=== PATIENT | female | born 1985 | race Caucasian/White ===

== ENCOUNTER → 2017-07-06 | Outpatient (CLI) | payer OTHER ==
[~2017-07-06] MED LIST: ACET50TA PO; IBUP80TA PO; LIDOCAINE 1% MDV 20ML VIAL As Ordered ONE; PRE-TAB3 PO; RANITAB PO
--- NOTE | 2017-07-06 11:02 | REP ---
LEFT BREAST MAMMOGRAM: Postbiopsy mammogram left breast performed. Patient underwent an ultrasound guided biopsy of a nodule in the upper aspect of the left breast. A metallic clip is seen at the site of the spiculated nodule previously identified on the mammogram of 06/28/2017. Signed by Giovanni Burnett MD 07/06/2017 01:29 P
--- NOTE | 2017-07-06 17:32 | REP ---
ULTRASOUND GUIDED LEFT BREAST BIOPSY: The procedure was performed under the direct supervision of Dr. Burnett. The patient has a history of a hypoechoic irregularly shaped shadowing mass measuring 1.5 x 1.9 cm at the 12 o'clock position of the left breast seen in a previous ultrasound dated 06/28/2017. The risks and benefits of the procedure were explained to the patient and informed consent was obtained. The left breast mass was localized ultrasound guidance. The skin was prepped and draped in a sterile fashion 1% lidocaine was used as a local anesthetic. Using ultrasound guidance a 13-gauge suction assisted mammotome needle was inserted and 6 core biopsy samples were obtained. A marker clip was placed at the biopsy site. The patient tolerated the procedure well and there were no immediate complications. After the appropriate amount of monitored convalescence the patient was discharged from the department. Reviewed by SAMI Valderrama 07/07/2017 04:30 PEdited and Signed by Giovanni Burnett MD 07/08/2017 04:23 P
== END ==
LOC: M RADPRO 09:03
PROVIDERS: ATTEND Surgery
DX: C50.919 Malignant neoplasm of unspecified site of unspecified female breast (principal); Z79.899 Other long term (current) drug therapy
CPT/HCPCS: 19083; 88305; G0206

== ENCOUNTER → 2017-09-16 | Outpatient (REF) | payer OTHER ==
[2017-09-18 14:12] LABS: HPV HYBRID CAPTURE II Negative (Negative)
== END ==
LOC: M LAB REF 15:17
DX: Z12.4 Encounter for screening for malignant neoplasm of cervix (principal)
CPT/HCPCS: G0123

== ENCOUNTER → 2017-09-21 | Outpatient (CLI) | payer OTHER | LOC: M ONCR 10:27 | DX: C50.912 Malignant neoplasm of unspecified site of left female breast (principal) | CPT/HCPCS: G0463 ==

== ENCOUNTER 2017-09-23 11:05 | Outpatient (RCR) | payer OTHER | END 2017-10-20 | LOC: M ONCR 11:05 | DX: C50.812 Malignant neoplasm of overlapping sites of left female breast (principal) | CPT/HCPCS: 77300 ==

== ENCOUNTER → 2017-09-23 | Outpatient (CLI) | payer OTHER | LOC: M RAD 10:32 | DX: C50.912 Malignant neoplasm of unspecified site of left female breast (principal) ==

== ENCOUNTER 2017-10-21 11:18 | Outpatient (RCR) | payer OTHER | END 2017-11-20 | LOC: M ONCR 11:18 | DX: C50.812 Malignant neoplasm of overlapping sites of left female breast (principal) | CPT/HCPCS: 77300 ==

== ENCOUNTER → 2017-12-29 | Outpatient (CLI) | payer OTHER | LOC: M ONCR 11:25 | DX: C50.812 Malignant neoplasm of overlapping sites of left female breast (principal) | CPT/HCPCS: G0463 ==

== ENCOUNTER → 2018-07-13 | Outpatient (CLI) | payer OTHER | LOC: M ONCR 10:54 | DX: C50.912 Malignant neoplasm of unspecified site of left female breast (principal) | CPT/HCPCS: G0463 ==

== ENCOUNTER → 2018-11-14 | Outpatient (REF) | payer OTHER ==
[~2018-11-14] MED LIST changes: -ACET50TA PO; -LIDOCAINE 1% MDV 20ML VIAL As Ordered ONE; +MAPA500T2 PO; +SILV40CR EXT
[2018-11-16 14:12] LABS: HPV HYBRID CAPTURE II Negative (Negative)
== END ==
LOC: M LAB REF 19:23
PROVIDERS: ATTEND Advanced Practice Midwife
DX: Z12.4 Encounter for screening for malignant neoplasm of cervix (principal); Z11.51 Encounter for screening for human papillomavirus (HPV)
CPT/HCPCS: 87624; G0123

== ENCOUNTER → 2019-10-26 | Outpatient (CLI) | payer OTHER ==
--- NOTE | 2019-10-26 08:32 | REPMRS ---
Patient History The patient states she had a clinical breast exam in 05/2019. Patient has history of cancer in the left breast at age 32 and had previous chest radiation therapy at age 32. Family history of ovarian cancer at age 50 or over in maternal grandmother, prostate cancer at age 50 or over in maternal grandfather. Malignant US guided breast biopsy of the left breast, July 06, 2017. Taking tamoxifen for 2 years. Digital Woman Screen Mammo: October 26, 2019 - Exam #: [id number] Bilateral CC and MLO view(s) were taken. Technologist: Alicia Hunter, Technologist Prior study comparison: February 27, 2019, bilateral breast MRI, performed at [facility]. August 19, 2018, bilateral digital mammo screening bilat, performed at [facility]. July 06, 2017, left breast digital mammo diagnostic unilateral, performed at [facility]. June 29, 2017, digital mammo diagnostic bilateral, performed at [facility]. FINDINGS: There are scattered fibroglandular densities. There are stable post-treatment changes in the left breast at approximately the 12 o'clock position. There is a moderate amount of residual fibroglandular tissue which is fairly symmetric. There is no interval development of dominant mass, architectural distortion, or grouped microcalcification typical of malignancy. There has been no change in the appearance of the mammogram from the prior studies. 3-D tomosynthesis shows no additional findings. Assessment: BI-RADS/ACR category 2 mammogram. Benign Findings. Recommendation Routine screening mammogram of both breasts in 1 year (for women over age 40). This mammogram was interpreted with the aid of an FDA-approved computer-aided dectection system. Electronically Signed By: Wei Aponte MD 10/26/19 0861
== END ==
LOC: M WHC 06:33
PROVIDERS: ATTEND Nurse Practitioner
DX: Z12.31 Encounter for screening mammogram for malignant neoplasm of breast (principal); Z85.3 Personal history of malignant neoplasm of breast; Z80.41 Family history of malignant neoplasm of ovary; Z80.42 Family history of malignant neoplasm of prostate; Z92.3 Personal history of irradiation

== ENCOUNTER → 2020-05-28 | Outpatient (CLI) | payer OTHER ==
[2020-05-28 21:03] LABS: HEPATITIS B SURFACE ANTIBODY NEGATIVE (POSITIVE); HEPATITIS B SURFACE ANTIGEN NEGATIVE (NEGATIVE); HEPATITIS C VIRUS ABY INDEX 0.1 INDEX (<0.8); HIV 1&2 SCREEN CENTAUR NEGATIVE (NEGATIVE)
[2020-05-31 16:08] LABS: HSV TYPE II IgG SPECIFIC <0.91 index (0.00-0.90)
== END ==
LOC: M WUC 16:07
PROVIDERS: ATTEND Family Medicine
DX: Z72.51 High risk heterosexual behavior (principal)

== ENCOUNTER → 2020-09-16 | Outpatient (REF) | payer OTHER | LOC: M SFHCWAGY 13:33 | PROVIDERS: ATTEND Advanced Practice Midwife | DX: Z12.4 Encounter for screening for malignant neoplasm of cervix (principal) ==

== ENCOUNTER → 2020-10-23 | Outpatient (CLI) | payer OTHER ==
--- NOTE | 2020-10-23 09:45 | PFTRPT ---
Height: 63.00 Inches Weight: 188.00 Lbs BSA: 1.88 Diagnosis: R06.02 DATE: 10/23/2020 ORDERING PHYSICIAN: Dr. Shoaib Segundo Pre and post bronchodilator studies have excellent technical quality. Forced vital capacity is normal. FEV1 is in proportion. Obstructive index is therefore normal. Expiratory limit of the flow-volume loop is normal. No significant bronchodilator response is identified. Total lung capacity is normal. Residual volume is in proportion. Diffusing capacity is normal. No hemoglobin available for correction. Airway resistance and conductance are normal. IMPRESSION: Normal study. MTDD
--- NOTE | 2020-10-23 10:40 | REP ---
INDICATION: SHORTNESS OF BREATH- PFT TEST FIRST COMPARISON: None. TECHNIQUE: PA and lateral. FINDINGS: The mediastinum and cardiac silhouette are normal. The lung oconnor are clear and without acute consolidation, effusion, or pneumothorax. The skeletal structures are intact and normal. IMPRESSION: No acute cardiopulmonary process. <Electronically signed by Dieter Thompson > 10/23/20 1037
== END ==
LOC: M CARPUL 09:14
PROVIDERS: ATTEND Family Medicine
DX: R06.02 Shortness of breath (principal)

== ENCOUNTER → 2020-11-25 | Outpatient (CLI) | payer OTHER ==
--- NOTE | 2020-11-25 15:08 | REPMRS ---
Patient History The patient states she had a clinical breast exam in August 2020. Patient has history of cancer in the left breast at age 32 and had previous chest radiation therapy at age 32. Family history of ovarian cancer at age 50 or over in maternal grandmother, prostate cancer at age 50 or over in maternal grandfather. Malignant US guided breast biopsy of the left breast, July 06, 2017. Took tamoxifen for 2 years. 3D TOMOSYNTHESIS WAS PERFORMED. Volpara breast density c. Digital Woman Screen Mammo: November 25, 2020 - Exam #: [id number] Bilateral CC and MLO view(s) were taken. Technologist: Val Clemens, RT Prior study comparison: October 26, 2019, bilateral digital woman screen mammo performed at [facility]. August 19, 2018, bilateral digital mammo screening bilat, performed at [facility]. FINDINGS: The breast tissue is heterogeneously dense. This may lower the sensitivity of mammography. There is no evidence of cancer on this mammogram. There are stable postsurgical changes in the left breast, few metallic clips are seen superiorly. Coarse benign type calcifications are present. There is no new mass or clustered microcalcifications. No significant changes when compared with prior studies. Assessment: BI-RADS/ACR category 2 mammogram. Benign Findings. Recommendation Routine screening mammogram of both breasts in 1 year (for women over age 40). This mammogram was interpreted with the aid of an FDA-approved computer-aided dectection system. Electronically Signed By: Giovanni Burnett MD 11/25/20 [id number]
== END ==
LOC: M WHC 13:50
PROVIDERS: ATTEND Nurse Practitioner
DX: Z12.31 Encounter for screening mammogram for malignant neoplasm of breast (principal); Z85.3 Personal history of malignant neoplasm of breast; Z92.3 Personal history of irradiation; Z80.41 Family history of malignant neoplasm of ovary; Z92.29 Personal history of other drug therapy

== ENCOUNTER 2021-01-29 09:13 | Inpatient (IN) | payer OTHER ==
[~2021-01-29] VITALS: Ht 160 cm; Wt 86.3 kg
[2021-01-29 10:09] LABS: HEMOGLOBIN 14.7 g/dl (12.0-15.5); MEAN CORPUSCULAR HEMOGLOBIN 29.2 pg (27.0-33.0); MEAN CORPUSCULAR HGB CONC 33.4 g/dl (32.0-36.5); MEAN CORPUSCULAR VOLUME 87.5 fl (80.0-96.0); PLATELET COUNT, AUTOMATED 273 10^3/uL (150-450); RED BLOOD COUNT 5.03 10^6/uL (4.00-5.40); WHITE BLOOD COUNT 7.2 10^3/uL (4.0-10.0)
[2021-01-29 10:43] LABS: AMPHETAMINES LEVEL URINE NEGATIVE (NEGATIVE); BARBITURATES URINE NEGATIVE (NEGATIVE); BENZODIAZEPINES URINE NEGATIVE (NEGATIVE); CANNABINOIDS URINE NEGATIVE (NEGATIVE); COCAINE METABOLITE URINE NEGATIVE (NEGATIVE); METHADONE URINE NEGATIVE (NEGATIVE); OPIATES URINE NEGATIVE (NEGATIVE); PHENCYCLIDINE URINE NEGATIVE (NEGATIVE)
[2021-01-29 11:19] LABS: ACETAMINOPHEN LEVEL < 2.0 UG/ML (10.0-30.0); ALBUMIN 3.8 GM/DL (3.2-5.2); ALT/SGPT 25 U/L (12-78); BILIRUBIN,DIRECT 0.1 MG/DL (0.0-0.2); BILIRUBIN,TOTAL 0.4 MG/DL (0.2-1.0); BLOOD UREA NITROGEN 12 MG/DL (7-18); CALCIUM LEVEL 9.3 MG/DL (8.5-10.1); CARBON DIOXIDE LEVEL 22 MEQ/L (21-32); CHLORIDE LEVEL 110 MEQ/L (98-107); CREATININE FOR GFR 0.91 MG/DL (0.55-1.30); ETHYL ALCOHOL (ETHANOL) 0.005 % (0.000-0.010); GLOMERULAR FILTRATION RATE > 60.0 (>60); GLUCOSE, FASTING 139 MG/DL (70-100); SALICYLATE LEVEL < 1.7 MG/DL (5.0-30.0); SODIUM LEVEL 143 MEQ/L (136-145); TOTAL PROTEIN 7.8 GM/DL (6.4-8.2)
[2021-01-29] MEDS ORDERED: VENL75CA47 PO (11:24)
[2021-01-29] MEDS ORDERED: CETI10TA PO (15:08)
[2021-01-29] MEDS ORDERED: FLON27.5 NARES (15:08)
[2021-01-29 16:53] LABS: RSV AMPLIFICATION NEGATIVE (NEGATIVE)
[2021-01-29] MEDS ORDERED: traZODone 50 MG TAB PO PRN (17:30)
[2021-01-29] MEDS ORDERED: MAALOX 30 ML SUSP *UDC PO PRN (17:30)
[2021-01-29] MEDS ORDERED: MOM 30ML SUSPENSION UDC PO PRN (17:30)
[2021-01-29] MEDS ORDERED: NICOTINE 21MG/24HR 1 EA TRANSDERMAL TD PRN (17:30)
[2021-01-29] MEDS ORDERED: IBUPROFEN 400MG TAB PO PRN (17:30)
[2021-01-29 22:23] VITALS: BP 144/98
[2021-01-30 07:17] VITALS: BP 145/77
[2021-01-30] MEDS ORDERED: VENLAFAXINE **XR** 75MG CAPSULE PO SCH (09:00)
[2021-01-30] MEDS ORDERED: hydrOXYzine 50 MG TAB PO PRN (12:00)
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
--- NOTE | 2021-01-30 15:15 | HPEPDOC ---
[facility] Medical History & Physical Date of Admission Jan 29, 2021 Date of Service: Jan 30, 2021 History and Physical CHIEF COMPLAINT: Suicidal ideation HISTORY OF PRESENT ILLNESS: 35-year-old female admitted to inpatient mental health for suicidal ideation, stating that she felt like "driving her car off the road". . She stated she attempted to seek outpatient assistance but was unable to follow through with her appointments. , She noted trivial activities of daily living were triggering her depression. Agent called the police and was brought to the emergency room for mental health evaluation. On evaluation she denies any medical complaints. She denies chest pain, shortness of breath, abdominal pain, nausea, vomiting, diarrhea, headaches. PAST MEDICAL HISTORY: #breast cancer #asthma Family History: Reviewed, non-contributory Social History: Denies nicotine abuse, admits to marijuana use 1-2 x week, denies alcohol abuse or other illicit drug use. ALLERGIES: Please see below. REVIEW OF SYSTEMS: Negative except as per HPI HOME MEDICATIONS: Please see below. PHYSICAL EXAMINATION: VITAL SIGNS: See below General: NAD, sitting comfortably in chair HEENT: NC/AT, EOMI Lungs: CTA B/L Heart: +S1S2, RRR, -M/R/G Abd: soft, obese, +BS, NT Ext: no edema Neuro: AAOx3, no gross focal deficits LABORATORY DATA: See below. MICROBIOLOGY: Please see below. A/P: 35-year-old female admitted to inpatient mental health unit for suicidal ideation. #Suicidal ideation. Follow as per primary team - psychiatry #breast cancer - continue with outpatient follow up #asthma - stable Thank you for this consultation. Please reconsult as needed. Vital Signs Vital Signs Date Time Temp Pulse Resp B/P (MAP) Pulse Ox O2 Delivery O2 Flow Rate FiO2 01/30/21 07:17 98.1 108 16 145/77 (99) 99 Room Air Laboratory Data Labs 24H Laboratory Tests 2 01/29/21 16:08: Coronavirus (COVID-19)(PCR) NEGATIVE, Influenza Type A (RT-PCR) NEGATIVE, Influenza Type B (RT-PCR) NEGATIVE, Respiratory Syncytial Virus (PCR) NEGATIVE Home Medications Scheduled Cetirizine HCl (Cetirizine HCl) 10 Mg Tablet, 10 MG PO DAILY Fluticasone Furoate (Flonase Sensimist) 5.9 Ml [place].susp, 1 SPRAY NARES BID Venlafaxine HCl (Venlafaxine HCl ER) 75 Mg Cap.er.24h, 75 MG PO DAILY Allergies Coded Allergies: ENVIROMENTAL (Verified Allergy, Unknown, 11/28/14) A-FIB/CHADSVASC A-FIB History Current/History of A-Fib/PAF?: No SHAHBAZ BRO MD Jan 30, 2021 13:17
[2021-01-30 16:16] VITALS: BP 164/111
[2021-01-30] MEDS: CETIRIZINE (ZyrTEC) 10 MG TAB PO SCH (16:19)
[2021-01-30] MEDS ORDERED: NICO21PAT TD (16:31)
[2021-01-30] MEDS ORDERED: VENL37.598 PO (16:31)
[2021-01-30] MEDS ORDERED: HYDR50TA70 PO (16:31)
[2021-01-30] MEDS: FLUTICASONE PROP 0.05% NASAL SPRAY 16 GM (FLONASE) NARES SCH (22:20)
[2021-01-31 06:00] VITALS: BP 134/93
[2021-01-31] MEDS ORDERED: VENLAFAXINE **XR** 37.5 MG CAPSULE PO SCH (09:00)
[2021-01-31] MEDS: CETIRIZINE (ZyrTEC) 10 MG TAB PO SCH (09:10)
[2021-01-31] MEDS: FLUTICASONE PROP 0.05% NASAL SPRAY 16 GM (FLONASE) NARES SCH (09:10)
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
== END 2021-01-31 10:45 | disposition home or self-care (01) | DRG 885 ==
LOC: M ED 09:13 → M ED INP 17:26 → M PSY 18:52
PROVIDERS: ADMIT Psychiatry & Neurology Psychiatry; ATTEND Psychiatry & Neurology Psychiatry
DX: F32.1 Major depressive disorder, single episode, moderate (principal); R45.851 Suicidal ideations; F43.10 Post-traumatic stress disorder, unspecified; F41.1 Generalized anxiety disorder; Z92.3 Personal history of irradiation; Z62.810 Personal history of physical and sexual abuse in childhood; Z62.811 Personal history of psychological abuse in childhood; Z81.8 Family history of other mental and behavioral disorders; Z20.822 Contact with and (suspected) exposure to COVID-19; Z79.899 Other long term (current) drug therapy; Z85.3 Personal history of malignant neoplasm of breast; J45.909 Unspecified asthma, uncomplicated; Z63.0 Problems in relationship with spouse or partner

== ENCOUNTER → 2021-08-11 | Outpatient (CLI) | payer OTHER ==
[~2021-08-11] MED LIST changes: +CETI10CH PO; +CETI10TA PO; +FLON27.5 NARES; +HYDR1TAB33 PO; +HYDR50TA70 PO; +NICO1DIS12 TD; +NICO21PAT TD; +VENL37.598 PO; +VENL37TA PO; +VENL75CA47 PO; +VENL75TA2 PO
== END ==
LOC: M WHC 13:52
PROVIDERS: ATTEND Internal Medicine Medical Oncology
DX: C50.812 Malignant neoplasm of overlapping sites of left female breast (principal)

== ENCOUNTER → 2021-11-28 | Outpatient (CLI) | payer OTHER | LOC: M WHC 15:01 | PROVIDERS: ATTEND Internal Medicine Medical Oncology | DX: Z85.3 Personal history of malignant neoplasm of breast (principal); Z92.3 Personal history of irradiation; Z80.41 Family history of malignant neoplasm of ovary; Z80.42 Family history of malignant neoplasm of prostate; Z92.21 Personal history of antineoplastic chemotherapy | CPT/HCPCS: 77066; G0279 ==

== ENCOUNTER 2023-02-16 11:35 | Day surgery (SDC) | payer OTHER ==
[~2023-02-16] VITALS: Ht 160 cm; Wt 89.9 kg
[~2023-02-16 11:35] MED LIST changes: +ALBU8.5H INH; +AZEL0.055; +ESTR62CR; +LORA-622 PO; +NS 1,000 ML IV ONE
[2023-02-16] MEDS ORDERED: fentaNYL 100 MCG/2 ML INJECTION As Ordered ONE (12:10)
[2023-02-16] MEDS ORDERED: LIDOCAINE 2% 100MG/5ML SDV (FOR ANES.) As Ordered ONE (12:10)
[2023-02-16] MEDS ORDERED: propofoL 500 MG/50 ML VIAL As Ordered ONE (12:10)
[2023-02-16 12:41] VITALS: TEMP 97.3
[2023-02-16 13:10] VITALS: BP 142/89; O2SAT 100
== END 2023-02-16 13:20 | disposition home or self-care (01) ==
LOC: M OPP 11:35
PROVIDERS: ATTEND Internal Medicine Gastroenterology
DX: K64.8 Other hemorrhoids (principal); K63.89 Other specified diseases of intestine; K31.84 Gastroparesis; K31.89 Other diseases of stomach and duodenum; Z79.51 Long term (current) use of inhaled steroids; Z79.52 Long term (current) use of systemic steroids; Z79.899 Other long term (current) drug therapy
CPT/HCPCS: 43239; 45380; 88305; J3010

== ENCOUNTER → 2023-02-24 | Outpatient (CLI) | payer OTHER ==
[~2023-02-24] MED LIST changes: -NS 1,000 ML IV ONE
== END ==
LOC: M WHC 13:37
PROVIDERS: ATTEND Internal Medicine Medical Oncology
DX: Z12.31 Encounter for screening mammogram for malignant neoplasm of breast (principal)

== ENCOUNTER → 2023-06-04 | Outpatient (CLI) | payer OTHER ==
[~2023-06-04] MED LIST changes: +ESTR62CR EXT; +PROHANCE 279.3MG/ML 15ML VIAL As Ordered ONE; +PROHANCE 279.3MG/ML 5ML VIAL As Ordered ONE; +VENL150C43 PO
== END ==
LOC: M RAD 16:47
PROVIDERS: ATTEND Internal Medicine Medical Oncology
DX: R51.9 Headache, unspecified (principal); R42 Dizziness and giddiness; R41.3 Other amnesia; Z85.3 Personal history of malignant neoplasm of breast
CPT/HCPCS: 70553; A9576

== ENCOUNTER → 2023-06-04 | Outpatient (CLI) | payer OTHER ==
[~2023-06-04] MED LIST changes: -PROHANCE 279.3MG/ML 15ML VIAL As Ordered ONE; -PROHANCE 279.3MG/ML 5ML VIAL As Ordered ONE
== END ==
LOC: M RAD 16:49
PROVIDERS: ATTEND Family Medicine
DX: J32.4 Chronic pansinusitis (principal)

== ENCOUNTER → 2023-10-11 | Outpatient (CLI) | payer OTHER ==
[~2023-10-11] MED LIST changes: +MV-M1TAB13 PO; +PROHANCE 279.3MG/ML 15ML VIAL As Ordered ONE; +PROHANCE 279.3MG/ML 5ML VIAL As Ordered ONE; +VITMTA PO
== END ==
LOC: M RAD 15:06
PROVIDERS: ATTEND Internal Medicine Medical Oncology
DX: R51.9 Headache, unspecified (principal); R42 Dizziness and giddiness; Z85.3 Personal history of malignant neoplasm of breast
CPT/HCPCS: A9576; C8908

== ENCOUNTER → 2023-10-25 | Outpatient (CLI) | payer OTHER ==
[~2023-10-25] MED LIST changes: -PROHANCE 279.3MG/ML 15ML VIAL As Ordered ONE; -PROHANCE 279.3MG/ML 5ML VIAL As Ordered ONE
== END ==
LOC: M RAD 16:43
PROVIDERS: ATTEND Otolaryngology
DX: J32.8 Other chronic sinusitis (principal); H70.93 Unspecified mastoiditis, bilateral

== ENCOUNTER → 2023-11-05 | Outpatient (CLI) | payer OTHER | LOC: M EKG 16:58 | PROVIDERS: ATTEND Anesthesiology | DX: Z01.818 Encounter for other preprocedural examination (principal) ==

== ENCOUNTER 2023-11-15 12:03 | Day surgery (SDC) | payer OTHER ==
[~2023-11-15] VITALS: Ht 160 cm; Wt 90.4 kg
[2023-11-15] MEDS ORDERED: ROCURONIUM BROMIDE 50MG/5ML VIAL As Ordered ONE (12:20)
[2023-11-15] MEDS ORDERED: MIDAZOLAM INJ 2MG/2ML VIAL As Ordered ONE (12:20)
[2023-11-15] MEDS ORDERED: fentaNYL 100 MCG/2 ML INJECTION As Ordered ONE (12:20)
[2023-11-15] MEDS ORDERED: ONDANSETRON 4MG 2ML VIAL As Ordered ONE (12:20)
[2023-11-15] MEDS ORDERED: LIDOCAINE 2% 100MG/5ML SDV (FOR ANES.) As Ordered ONE (12:20)
[2023-11-15] MEDS ORDERED: propofoL 200 MG/20 ML VIAL As Ordered ONE (12:20)
[2023-11-15] MEDS ORDERED: SUGAMMADEX SODIUM 500 MG/5 ML VIAL (BRIDION) As Ordered ONE (12:54)
[2023-11-15] MEDS ORDERED: OXYMETAZOLINE 0.05% NASAL SPRAY (AFRIN) As Ordered ONE (12:57)
[2023-11-15] MEDS ORDERED: LABETALOL 100MG/20ML VIAL As Ordered ONE (13:31)
[2023-11-15] MEDS: LIDOCAINE W/EPINEPHRINE 1% 20ML VIAL As Ordered ONE (13:54)
[2023-11-15] MEDS: COCAINE 4% 4ML NASAL SOLUTION BTL As Ordered ONE (13:55)
[2023-11-15] MEDS: CIPRODEX OTIC SUSP 7.5ML As Ordered ONE (14:19)
[2023-11-15] MEDS ORDERED: ACETAMINOPHEN 1000MG 100ML IV BAG As Ordered ONE (14:19)
[2023-11-15] MEDS ORDERED: PHENYLephrine 500MCG 5ML (100MCG/ML) SYRINGE As Ordered ONE (14:57)
[2023-11-15] MEDS ORDERED: ePHEDrine SULFATE 25 MG/5 ML(5MG/ML) SYRINGE As Ordered ONE (14:57)
[2023-11-15] MEDS ORDERED: HYDROMORPHONE HCL 0.5 MG/ 0.5 ML SYRINGE IV PRN (15:50)
[2023-11-15] MEDS ORDERED: fentaNYL 100 MCG/2 ML INJECTION IV PRN (15:50)
[2023-11-15] MEDS ORDERED: LR 1,000 ML IV SCH (15:50)
[2023-11-15] MEDS ORDERED: oxyCODONE 5MG TAB PO PRN (15:50)
[2023-11-15] MEDS: ONDANSETRON 4MG 2ML VIAL IV PRN (16:32)
[2023-11-15 16:54] LABS: HEMATOCRIT 36.5 % (36.0-47.0); HEMOGLOBIN 12.3 g/dl (12.0-15.5); MEAN CORPUSCULAR HEMOGLOBIN 29.1 pg (27.0-33.0); MEAN CORPUSCULAR HGB CONC 33.7 g/dl (32.0-36.5); MEAN CORPUSCULAR VOLUME 86.5 fl (80.0-96.0); PLATELET COUNT, AUTOMATED 256 10^3/uL (150-450); RED BLOOD COUNT 4.22 10^6/uL (4.00-5.40); WHITE BLOOD COUNT 11.4 10^3/uL (4.0-10.0)
[2023-11-15 17:29] VITALS: BP 130/79; TEMP 98.6; O2SAT 95
== END 2023-11-15 17:39 | disposition home or self-care (01) ==
LOC: M SDC 12:03
PROVIDERS: ATTEND Otolaryngology
DX: J32.8 Other chronic sinusitis (principal); J33.0 Polyp of nasal cavity; J34.2 Deviated nasal septum; J34.3 Hypertrophy of nasal turbinates; H65.23 Chronic serous otitis media, bilateral; G47.30 Sleep apnea, unspecified; J30.9 Allergic rhinitis, unspecified; Z79.899 Other long term (current) drug therapy
CPT/HCPCS: 30140; 30520; 31259; 31267; 31296; 36415; 61782; 69420; 85027; 88305; C9143; J0131; J1100; J1920; J2250; J2371; J2405; J3010

== ENCOUNTER → 2023-12-09 | Outpatient (CLI) | payer OTHER | LOC: M SLEEP HO 10:20 | PROVIDERS: ATTEND Nurse Practitioner Family | DX: R40.0 Somnolence (principal); G47.30 Sleep apnea, unspecified ==

== ENCOUNTER → 2024-05-09 | Outpatient (CLI) | payer OTHER ==
[~2024-05-09] MED LIST changes: -AZEL0.055; +AZEL1SPR4
== END ==
LOC: M WHC 16:37
PROVIDERS: ATTEND Specialist
DX: Z12.31 Encounter for screening mammogram for malignant neoplasm of breast (principal); Z85.3 Personal history of malignant neoplasm of breast; Z92.3 Personal history of irradiation; Z92.21 Personal history of antineoplastic chemotherapy

== ENCOUNTER → 2024-06-26 | Outpatient (CLI) | payer OTHER ==
[2024-06-26 10:38] LABS: BASO % 0.6 % (0.0-1.0); EOS # 0.7 10^3/uL (0.0-0.5); EOS % 10.7 % (0.0-3.0); HEMOGLOBIN 13.7 g/dl (12.0-15.5); LYMPH # 2.6 10^3/uL (1.5-5.0); LYMPH % 39.6 % (24.0-44.0); MEAN CORPUSCULAR HGB CONC 32.6 g/dl (32.0-36.5); MEAN CORPUSCULAR VOLUME 85.9 fl (80.0-96.0); MONO # 0.3 10^3/uL (0.0-0.8); NEUTROPHILS # 2.9 10^3/uL (1.5-8.5); NEUTROPHILS % 43.9 % (36.0-66.0); PLATELET COUNT, AUTOMATED 280 10^3/uL (150-450); RED BLOOD COUNT 4.89 10^6/uL (4.00-5.40); WHITE BLOOD COUNT 6.6 10^3/uL (4.0-10.0)
[2024-06-26 10:56] LABS: ALBUMIN 3.8 G/DL (3.2-5.2); ALKALINE PHOSPHATASE 114 U/L (35-104); ALT/SGPT 17 U/L (7.0-40); AST/SGOT 15 U/L (<34); BILIRUBIN,TOTAL 0.5 MG/DL (0.3-1.2); BLOOD UREA NITROGEN 13 MG/DL (9-23); CALCIUM LEVEL 9.7 MG/DL (8.5-10.1); CARBON DIOXIDE LEVEL 26 MMOL/L (20-31); CHLORIDE LEVEL 107 MMOL/L (98-107); CHOLESTEROL LEVEL 195 MG/DL (<200); CHOLESTEROL RISK RATIO 3.55 (<5); CREATININE FOR GFR 0.65 MG/DL (0.55-1.30); GLOMERULAR FILTRATION RATE > 60.0 (>58); GLUCOSE, FASTING 86 MG/DL (60-100); HDL CHOLESTEROL 54.9 MG/DL (>40); LDL CHOLESTEROL 115.3 MG/DL (<100); NON-HDL-C 140.1 MG/DL; POTASSIUM SERUM 3.9 MMOL/L (3.5-5.1); SODIUM LEVEL 142 MMOL/L (136-145); TOTAL PROTEIN 7.3 G/DL (5.7-8.2); TRIGLYCERIDES LEVEL 124 MG/DL (<150)
== END ==
LOC: M LAB 09:07
PROVIDERS: ATTEND Family Medicine
DX: R03.0 Elevated blood-pressure reading, without diagnosis of hypertension (principal)

== ENCOUNTER → 2024-10-24 | Outpatient (CLI) | payer OTHER ==
[~2024-10-24] MED LIST changes: +BUSP5TA; +COLL1CAP PO; +PROHANCE 279.3MG/ML 15ML VIAL ONE; +PROHANCE 279.3MG/ML 5ML VIAL ONE
== END ==
LOC: M PLAIMG 15:16
PROVIDERS: ATTEND Nurse Practitioner Women's Health
DX: Z85.3 Personal history of malignant neoplasm of breast (principal)
CPT/HCPCS: A9576; C8908

== ENCOUNTER → 2025-06-21 | Outpatient (CLI) | payer OTHER ==
[~2025-06-21] MED LIST changes: +LORA-1164 PO; -LORA-622 PO; -PROHANCE 279.3MG/ML 15ML VIAL ONE; -PROHANCE 279.3MG/ML 5ML VIAL ONE; +TIRZ2.5P3
== END ==
LOC: M WHC 16:42
PROVIDERS: ATTEND Internal Medicine Medical Oncology
DX: Z12.31 Encounter for screening mammogram for malignant neoplasm of breast (principal); Z85.3 Personal history of malignant neoplasm of breast; R92.323 Mammographic fibroglandular density, bilateral breasts